=== PATIENT | female | born 1960 | race African-American/Black ===

== ENCOUNTER → 2017-09-15 | Outpatient (CLI) | payer OTHER ==
[2017-09-15 08:17] LABS: BASOPHIL % 0.8 % (0-2); PLATELET COUNT 239 x10^3mcL (130-400); RED CELL DISTRIBUTION WIDTH 13.5 % (11.5-14.5)
[2017-09-15 08:36] LABS: ALBUMIN 3.8 g/dL (3.4-5.0); ALKALINE PHOSPHATASE 83 U/L (46-116); ALT/SGPT 19 U/L (14-59); AST/SGOT 18 U/L (15-37); BILIRUBIN TOTAL 0.49 mg/dL (0.20-1.00); CALCIUM 9.2 mg/dL (8.5-10.1); CARBON DIOXIDE 28.8 mmol/L (21-32); CHLORIDE SERUM 104 mmol/L (98-107); CHOLESTEROL 162 mg/dL (<200); CREATININE SERUM 0.9 mg/dL (0.6-1.0); GFR1 > 60 mL/min; GLUCOSE SERUM 102 mg/dL (74-106); POTASSIUM SERUM 4.5 mmol/L (3.5-5.1); SODIUM SERUM 138 mmol/L (136-145); TOTAL PROTEIN, SERUM 7.9 g/dL (6.4-8.2); TRIGLYCERIDES 120 mg/dL (<150)
[2017-09-15 08:39] LABS: T3 TOTAL 1.05 ng/mL
[2017-09-15 08:43] LABS: CHOLESTEROL/HDL RATIO 2.1; HDL CHOLESTEROL 77 mg/dL (40-60)
[2017-09-15 09:08] LABS: FREE T4 0.96 ng/dL (0.76-1.46); FREE THYROXINE INDEX 3.2 ug/dL (1.4-4.5)
== END | disposition home or self-care (01) ==
LOC: LB 07:36
PROVIDERS: Family Medicine
DX: R10.2 Pelvic and perineal pain (principal)
CPT/HCPCS: 82652; 84439

== ENCOUNTER 2019-04-08 11:16 | Emergency (ER) | payer OTHER ==
[~2019-04-08] VITALS: Ht 162.6 cm; Wt 97.1 kg
[2019-04-08 11:22] VITALS: Ht 162.6 cm; Wt 97.1 kg
[2019-04-08 15:27] VITALS: BP 143/75
== END 2019-04-08 15:27 | disposition home or self-care (01) ==
LOC: ED 11:16
DX: N84.0 Polyp of corpus uteri (principal); R19.09 Other intra-abdominal and pelvic swelling, mass and lump; N93.9 Abnormal uterine and vaginal bleeding, unspecified
CPT/HCPCS: J7030; Q0092

== ENCOUNTER → 2019-05-03 | Outpatient (CLI) | payer OTHER ==
[2019-05-03 11:27] LABS: ALBUMIN 3.6 g/dL (3.4-5.0); ALKALINE PHOSPHATASE 107 U/L (46-116); ALT/SGPT 23 U/L (14-59); AST/SGOT 18 U/L (15-37); BILIRUBIN TOTAL 0.5 mg/dL (0.20-1.00); CHLORIDE SERUM 108 mmol/L (98-107); CREATININE SERUM 0.9 mg/dL (0.6-1.0); GFR1 > 60 mL/min; GLUCOSE SERUM 94 mg/dL (74-106); POTASSIUM SERUM 4.4 mmol/L (3.5-5.1); SODIUM SERUM 142 mmol/L (136-145); TOTAL PROTEIN, SERUM 8.1 g/dL (6.4-8.2)
[2019-05-03 11:35] LABS: BASOPHIL % 0.8 % (0-2); PLATELET COUNT 254 x10^3mcL (130-400); RED CELL DISTRIBUTION WIDTH 12.9 % (11.5-14.5)
[2019-05-03 11:41] LABS: UA SPECIFIC GRAVITY 1.015 (1.005-1.035); microscopic required? YES; urine erythrocyte TRACE (NEGATIVE)
== END | disposition home or self-care (01) ==
LOC: LB 10:41
DX: Z01.818 Encounter for other preprocedural examination (principal)

== ENCOUNTER 2019-06-03 07:51 | Day surgery (SDC) | payer OTHER ==
[2019-05-31 11:45] LABS: BASOPHIL % 0.6 % (0-2); PLATELET COUNT 134 x10^3mcL (130-400); RED CELL DISTRIBUTION WIDTH 13.6 % (11.5-14.5)
[2019-05-31 12:02] LABS: CALCIUM 9.7 mg/dL (8.5-10.1); CARBON DIOXIDE 29.8 mmol/L (21-32); POTASSIUM SERUM 4.5 mmol/L (3.5-5.1)
[2019-05-31 12:09] LABS: ALBUMIN 3.7 g/dL (3.4-5.0); BILIRUBIN TOTAL 0.5 mg/dL (0.20-1.00); TOTAL PROTEIN, SERUM 7.5 g/dL (6.4-8.2)
[~2019-06-03] VITALS: Ht 162.6 cm; Wt 96.2 kg
[2019-06-03 08:14] VITALS: BP 137/79
[2019-06-03 14:57] VITALS: BP 145/85
== END 2019-06-03 14:50 | disposition home or self-care (01) ==
LOC: DS 07:51 → OR 10:30 → DS 14:50
PROVIDERS: Obstetrics & Gynecology
DX: N84.0 Polyp of corpus uteri (principal); N95.0 Postmenopausal bleeding; E66.8 Other obesity; N83.292 Other ovarian cyst, left side; Z79.899 Other long term (current) drug therapy; Z68.37 Body mass index [BMI] 37.0-37.9, adult
CPT/HCPCS: 88344; J0330; J2175; J2250; J2405; J2704; J2710; J3010; J3490; J7030; J7120

== ENCOUNTER → 2019-11-01 | Outpatient (CLI) | payer OTHER ==
[2019-11-01 07:51] LABS: BASOPHIL % 0.9 % (0-2); PLATELET COUNT 242 x10^3mcL (130-400); RED CELL DISTRIBUTION WIDTH 13.5 % (11.5-14.5)
[2019-11-01 08:22] LABS: ALBUMIN 3.5 g/dL (3.4-5.0); BILIRUBIN TOTAL 0.5 mg/dL (0.20-1.00); CALCIUM 8.6 mg/dL (8.5-10.1); CARBON DIOXIDE 30.2 mmol/L (21-32); CREATININE SERUM 1.1 mg/dL (0.6-1.0); POTASSIUM SERUM 4.2 mmol/L (3.5-5.1); T4(THYROXINE) 5.7 ug/dL (4.7-13.3); TOTAL PROTEIN, SERUM 7.7 g/dL (6.4-8.2)
[2019-11-01 08:23] LABS: CHOLESTEROL/HDL RATIO 2.8
[2019-11-01 08:31] LABS: ALBUMIN 3.6 g/dL (3.4-5.0); BILIRUBIN DIRECT 0.1 mg/dL (0.0-0.2); BILIRUBIN TOTAL 0.5 mg/dL (0.20-1.00); TOTAL PROTEIN, SERUM 7.7 g/dL (6.4-8.2)
== END | disposition home or self-care (01) ==
LOC: MA 07:20 → LB 07:20
PROVIDERS: Internal Medicine
PROC: BH02ZZZ Plain Radiography of Bilateral Breasts (ICD-10-PCS; principal; 2019-11-01)
DX: Z00.00 Encounter for general adult medical examination without abnormal findings (principal); Z12.31 Encounter for screening mammogram for malignant neoplasm of breast
CPT/HCPCS: 77067

== ENCOUNTER 2020-07-14 07:29 | Emergency (ER) | payer OTHER ==
[~2020-07-14] VITALS: Ht 167.6 cm; Wt 97.5 kg
[2020-07-14 07:37] VITALS: Ht 167.6 cm; Wt 97.5 kg
[2020-07-14 12:29] VITALS: BP 140/89
== END 2020-07-14 12:29 | disposition home or self-care (01) ==
LOC: ED 07:29
DX: M25.511 Pain in right shoulder (principal); M19.09 Primary osteoarthritis, other specified site